=== PATIENT | male | born 1995 | race Asian ===

== ENCOUNTER 2017-03-05 00:02 | Emergency (ER) | payer BC, OTHER ==
[~2017-03-05] VITALS: Ht 180.3 cm; Wt 79.5 kg
[2017-03-05] MEDS ORDERED: DIAZEPAM 5 MG TABLET PO ONE (00:30)
[2017-03-05 00:41] LABS: HEMATOCRIT 43.6 % (39.2-51.8); WHITE BLOOD COUNT 10.3 x10^3/uL (3.4-10)
[2017-03-05] MEDS ORDERED: DIAZEPAM 5 MG TABLET ONE (00:48)
[2017-03-05 00:53] LABS: ASPARTATE AMINO TRANSFERASE 36 U/L (15-37); BLOOD UREA NITROGEN 10 mg/dL (7-18)
[2017-03-05 00:59] LABS: IS PT STATUS REG ER OR PRE ER? YES
[2017-03-05 01:25] VITALS: BP 118/68
== END 2017-03-05 02:11 | disposition home or self-care (01) ==
LOC: ED 02:05
DX: R07.89 Other chest pain (principal); F41.1 Generalized anxiety disorder
CPT/HCPCS: 36415; 71020; 80053; 84484; 85025; 93005; 99285